=== PATIENT | male | born 1960 | race African-American/Black ===

== ENCOUNTER 2023-03-16 17:28 | Emergency (ER) | payer MEDICARE, OTHER ==
[~2023-03-16] VITALS: Ht 188 cm; Wt 59.0 kg
[2023-03-16 17:35] VITALS: O2SAT 98
[2023-03-16] MEDS ORDERED: LIDOCAINE HCL 1% 20ML VIAL (Pyxis) INJ INFIL ONE (20:15)
[2023-03-16] MEDS ORDERED: TETANUS, DIPHTHERIA, PERTUSSIS VAC/PF 0.5ML (>10YR OLD) IM ONE (20:30)
[2023-03-16 20:43] VITALS: BP 118/80; PULSE 70; RESP 18; TEMP 98.4
== END 2023-03-16 20:43 | disposition home or self-care (01) ==
LOC: ER 17:28
DX: S61.211A Laceration without foreign body of left index finger without damage to nail, initial encounter (principal); E11.9 Type 2 diabetes mellitus without complications; E78.00 Pure hypercholesterolemia, unspecified; Z98.890 Other specified postprocedural states; W26.0XXA Contact with knife, initial encounter; Y93.89 Activity, other specified; Y92.89 Other specified places as the place of occurrence of the external cause; Y99.8 Other external cause status
CPT/HCPCS: 90715; 12001; 90471; 99283; J3490; Z7610